=== PATIENT | male | born 1990 | race Caucasian/White ===

== ENCOUNTER 2017-08-16 15:52 | Emergency (ER) | payer SELFPAY ==
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
--- NOTE | 2017-08-16 17:56 | CR ---
EXAM DATE: 08/16/17 PATIENT'S AGE: 27 Patient: FRANCISCO ROUSE Facility: [place], [place] Site . Site : 1990 Study: XRay Chest [id number]/22/2018 4:42:07 PM Ordering Physician: Stuart Fox Final Report: HISTORY: Rib pain. FINDINGS: AP portable chest radiograph demonstrates a normal cardiac silhouette. Pulmonary vasculature is free of cephalization. No consolidation, pleural effusion or pneumothorax is seen. No displaced rib fracture is identified. IMPRESSION: No acute cardiopulmonary disease. Dictated by Elsy uJne MD @ 08/16/2017 4:44:17 PM Dictated by: Elsy June MD @ 08/16/2017 16:44:21 (Electronic Signature) Report Signed by Proxy. [facility]
== END 2017-08-16 17:01 | disposition home or self-care (01) ==
LOC: MW.ED 15:52
DX: S20.219A Contusion of unspecified front wall of thorax, initial encounter (principal); V89.2XXA Person injured in unspecified motor-vehicle accident, traffic, initial encounter
CPT/HCPCS: 71045; 71045-26; 99283

== ENCOUNTER 2017-08-16 22:02 | Emergency (ER) | payer SELFPAY ==
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
[2017-08-16] MEDS ORDERED: Sodium Chloride 0.9% 1,000 ML IV ONE (22:07)
[2017-08-16 22:36] LABS: CHLORIDE,CL 103 mmol/L (98-107); SODIUM,NA 143 mmol/L (136-148)
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
== END 2017-08-17 00:06 ==
LOC: MW.ED 22:02
DX: S06.6X0A Traumatic subarachnoid hemorrhage without loss of consciousness, initial encounter (principal); F10.10 Alcohol abuse, uncomplicated; F17.210 Nicotine dependence, cigarettes, uncomplicated; W10.9XXA Fall (on) (from) unspecified stairs and steps, initial encounter
CPT/HCPCS: 36415; 70450; 71045; 72125; 80053; 85025; 85610; 93005; 96360; 99285; G0480; J7040

== ENCOUNTER 2017-10-20 07:45 | Emergency (ER) | payer SELFPAY ==
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
== END 2017-10-20 07:58 | disposition home or self-care (01) ==
LOC: MW.ED 07:45
DX: Z13.9 Encounter for screening, unspecified (principal); F10.129 Alcohol abuse with intoxication, unspecified; Y90.6 Blood alcohol level of 120-199 mg/100 ml
CPT/HCPCS: 99282; 99283

== ENCOUNTER 2017-10-20 20:48 | Emergency (ER) | payer OTHER ==
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
== END 2017-10-20 21:22 | disposition home or self-care (01) ==
LOC: MW.ED 20:48
DX: Z02.89 Encounter for other administrative examinations (principal)
CPT/HCPCS: 99282; 99283

== ENCOUNTER 2018-02-08 22:18 | Emergency (ER) | payer SELFPAY ==
[2018-02-08] MEDS ORDERED: Bacitracin Oint 1 GM U/D Packet TOP ONE (22:22)
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
[2018-02-08] MEDS ORDERED: Sodium Chloride 0.9% 10 ML Syringe FLUSH PRN (23:23)
[2018-02-08] MEDS ORDERED: Sodium Chloride 0.9% 2.5 ML Syringe FLUSH PRN (23:23)
[2018-02-08] MEDS ORDERED: Lactated Ringers 1,000 ML IV SCH (23:45)
[2018-02-08 23:52] LABS: CHLORIDE,CL 103 mmol/L (98-107); SODIUM,NA 143 mmol/L (136-148)
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
== END 2018-02-09 00:15 ==
LOC: MW.ED 22:18
DX: Z02.89 Encounter for other administrative examinations (principal); S06.6X9A Traumatic subarachnoid hemorrhage with loss of consciousness of unspecified duration, initial encounter; S06.5X9A Traumatic subdural hemorrhage with loss of consciousness of unspecified duration, initial encounter; S02.2XXA Fracture of nasal bones, initial encounter for closed fracture; F17.210 Nicotine dependence, cigarettes, uncomplicated; Y04.0XXA Assault by unarmed brawl or fight, initial encounter; F10.129 Alcohol abuse with intoxication, unspecified; Y90.8 Blood alcohol level of 240 mg/100 ml or more
CPT/HCPCS: 70160; 70450; 80053; 82962; 85025; 85610; 96365; 99285; G0480; J7120